=== PATIENT | male | born 1980 | race Caucasian/White ===

== ENCOUNTER 2023-02-12 07:19 | Day surgery (SDC) | payer OTHER, SELFPAY ==
--- NOTE | 2023-02-10 13:33 | P.CONAN_ITS ---
Documented by User: Isamar Gaytan NP 02/10/23 13:34 HPI - Anesthesia Eval Consult details Narrative: 42yo M for Colonoscopy (early screening d/t family hx) [facility] Past Medical History Medical History (Updated 02/10/23 @ 13:34 by Isamar Gaytan NP) No pertinent past medical history Surgical History Surgical History (Updated 02/11/23 @ 07:48 by Desiree Moraes) No pertinent past surgical history Social History Social History Advance Directives: No Advance Directives Information Provided: Yes Meds Allergies Allergy/AdvReac Type Severity Reaction Status Date / Time No Known Allergies Allergy Verified 02/11/23 07:48 Home Medications Medication Instructions Recorded Confirmed Last Taken Type cyanocobalamin (vitamin B-12) 1,000 mcg PO 3XW 02/11/23 02/11/23 Unknown History 1,000 mcg tablet ibuprofen PRN Pain 02/11/23 02/11/23 Unknown History Exam Exam Date and Time: February 10, 2023 1333 Assessment and Plan Assessment Anesthesia Assessment: Chart Reviewed Documented by User: Jaden Singletary MD 02/12/23 07:21 [facility] Past Medical History Medical History (Updated 02/10/23 @ 13:34 by Isamar Gaytan NP) No pertinent past medical history Family History Family history of problems with anesthesia: No Surgical History Surgical History (Updated 02/11/23 @ 07:48 by Desiree Moraes) No pertinent past surgical history History of Problems with Anesthesia: No Social History Social History Advance Directives: No Advance Directives Information Provided: Yes Meds Allergies Allergy/AdvReac Type Severity Reaction Status Date / Time No Known Allergies Allergy Verified 02/11/23 07:48 Home Medications Medication Instructions Recorded Confirmed Last Taken Type cyanocobalamin (vitamin B-12) 1,000 mcg PO 3XW 02/11/23 02/11/23 Unknown History 1,000 mcg tablet ibuprofen PRN Pain 02/11/23 02/11/23 Unknown History Exam Airway Mallampati Class: II TM Dist: >3cm Neck ROM: Limited Heart: rrr Lungs: cta Other: rrr Assessment and Plan Assessment Anesthesia Assessment: Anesthesia Plan Discussed Final Anesthetic Review Family History of Problems with Anesthesia: No History of Problems with Anesthesia: No NPO: Yes ASA Class: II Final Preanesthetic Review: No Changes in Pt Med Stat, Meds/Allgs Chart Reviewed and Anes Risks/Benef Reviewed Patient Risk: Low Procedure Risk: Low Anesthetic Plan Anesthetic Plan: MAC: and Agree w/ Assess. and Plan Disposition: Standard PACU
[2023-02-12 07:49] VITALS: BP 117/70; PULSE 68; RESP 18; TEMP 36.3; O2SAT 97
[2023-02-12] MEDS: Lactated Ringers 1,000 ML 100 ML IVCONT (08:03)
[2023-02-12 09:39] VITALS: BP 116/56; PULSE 71; RESP 16; TEMP 36.1; O2SAT 97
--- NOTE | 2023-02-12 09:41 | P.BOP_ITS ---
Brief Operative Note Date of Service: 02/12/23 Pre-op diagnosis: Screening, Family history Post-op diagnosis: other (Internal hemorrhoids) Procedure: Colonoscopy to the cecum and TI Surgeon: Dilan King Anesthesia: MAC Was an Loan Documents Closer used for this Procedure?: No Estimated blood loss (mL): 0 Pathology: none sent Condition: stable Disposition: PACU
[2023-02-12 09:54] VITALS: BP 133/84; PULSE 71; RESP 16; TEMP 36.3; O2SAT 100
--- NOTE | 2023-02-12 09:55 | OP_ITS ---
DATE OF SERVICE: 02/12/2023 SURGEON: Dilan King MD INDICATIONS: The patient presents for evaluation of colorectal cancer screening and family history of colorectal cancer. Full consent obtained from him for this, including risks of bleeding and perforation. PREOPERATIVE DIAGNOSIS: POSTOPERATIVE DIAGNOSIS: PROCEDURE PERFORMED: Colonoscopy to cecum and terminal ileum. ESTIMATED BLOOD LOSS: COMPLICATIONS: ANESTHESIA: Medication used; monitored anesthesia care. ASSISTANTS: SPECIMENS: PREOPERATIVE DIAGNOSES: Colorectal cancer screening and family history of colon cancer. POSTOPERATIVE DIAGNOSES: Colorectal cancer screening and family history of colon cancer, internal hemorrhoids. DESCRIPTION OF PROCEDURE: The patient was placed in the left lateral decubitus position. The digital rectal exam revealed no abnormalities. The Olympus videopediatric colonoscope was entered into the rectum and advanced easily to the cecum. Once in the cecum, I did identify normal-appearing cecal pouch with appendiceal orifice and a normal-appearing ileocecal valve. The terminal ileum was cannulated and appeared normal. The scope was withdrawn back in the colon. The entire cecum and ileocecal valve appeared normal. The scope was slowly withdrawn assessing all mucosal surfaces carefully. Preparation was excellent. I did not visualize any sign of polyps, colitis, or angiodysplasia. In the rectum, the scope was retroflexed, visualizing small internal hemorrhoids, but no other pathology. The rectal mucosa appeared normal. The scope was straightened and withdrawn from the patient. He tolerated procedure well and was returned to recovery area in stable condition. IMPRESSION: Internal hemorrhoids, otherwise normal colonoscopy. PLAN: Given his family history, I would recommend a followup coloscopy in 5 years for further screening. He will otherwise see me on a p.r.n. basis. MD GEM Lynch/GALI / [id number]
== END 2023-02-12 10:23 | disposition home or self-care (01) ==
PROVIDERS: PCP Nurse Practitioner Family; Visit Provider Internal Medicine
PROC: 0DJD8ZZ Inspection of Lower Intestinal Tract, Via Natural or Artificial Opening Endoscopic (ICD-10-PCS; CPT 45378; principal; 2023-02-12 08:30)
DX: Z12.11 Encounter for screening for malignant neoplasm of colon (principal); Z80.0 Family history of malignant neoplasm of digestive organs; K64.8 Other hemorrhoids; Z79.1 Long term (current) use of non-steroidal anti-inflammatories (NSAID); Z79.899 Other long term (current) drug therapy; Z28.21 Immunization not carried out because of patient refusal
CPT/HCPCS: 45378